=== PATIENT | female | born 1955 | race Caucasian/White ===

== ENCOUNTER → 2018-06-24 | Outpatient (CLI) | payer OTHER ==
[2018-06-24 10:35] LABS: CHOL/HDL RATIO 4.1; Cholesterol 241 mg/dL (50-200); HDL Cholesterol 59 mg/dL (>39); LDL/HDL RATIO 2.5; Low Density Lipoprotein Chol 146 mg/dL (0-110); Triglycerides 182 mg/dL (30-160); Very Low Density Lipoprot Chol 36 mg/dL (6-32)
== END | disposition home or self-care (01) ==
LOC: LAB 09:21 → LAB SHORT 09:21
PROVIDERS: Physician Assistant
DX: Z13.0 Encounter for screening for diseases of the blood and blood-forming organs and certain disorders involving the immune mechanism (principal)
CPT/HCPCS: 80061; 83036

== ENCOUNTER → 2019-03-08 | Outpatient (CLI) | payer OTHER | LOC: LAB 15:45 → LAB SHORT 15:45 | DX: N39.0 Urinary tract infection, site not specified (principal) | CPT/HCPCS: 87086 ==

== ENCOUNTER 2019-06-01 19:21 | Observation (INO) | payer OTHER ==
[~2019-06-01] VITALS: Ht 162.6 cm; Wt 113.4 kg
[2019-06-01 19:55] LABS: BASOPHILS ABSOLUTE AUTO 0.04 K/mm3 (0.00-0.23); BASOPHILS PERCENT AUTO 0 % (0-2); EOSINOPHILS ABSOLUTE AUTO 0.08 K/mm3 (0.00-0.68); EOSINOPHILS PERCENT AUTO 1 % (0-6); Hematocrit 41.6 % (33.0-51.0); Hemoglobin 13.7 g/dL (11.5-16.0); IMMATURE GRAN ABSOLUTE AUTO 0.02 K/mm3 (0.00-0.10); IMMATURE GRAN PERCENT AUTO 0 % (0-1); LYMPHOCYTES ABSOLUTE AUTO 4.59 K/mm3 (0.84-5.20); LYMPHOCYTES PERCENT AUTO 49 % (21-46); MONOCYTES ABSOLUTE AUTO 0.53 K/mm3 (0.16-1.47); MONOCYTES PERCENT AUTO 6 % (4-13); Mean Corpuscular HGB Conc 32.9 g/dL (31.5-36.5); Mean Corpuscular Volume 100 fL (80-100); Mean Platelet Volume 9.9 fL (9.1-12.4); NEUTROPHILS ABSOLUTE AUTO 4.06 K/mm3 (1.96-9.15); NEUTROPHILS PERCENT AUTO 44 % (41-73); Platelet Count 268 K/mm3 (150-400); RDW Coefficient Variation 13.3 % (11.7-14.2); RDW Standard Deviation 49.8 fL (35.1-46.3); Red Blood Cell Count 4.15 M/mm3 (3.80-5.20); White Blood Cell Count 9.32 K/mm3 (4.00-11.30)
[2019-06-01 20:19] LABS: Ethanol (Alcohol), Blood, Med 110 mg/dL; Free Thyroxine 0.94 ng/dL (0.70-1.60); Salicylate <1.7 mg/dL (2.8-20.0)
[2019-06-01 20:20] LABS: Alanine Aminotransfer (ALT/SGP 47 U/L (12-78); Albumin, Blood 3.9 g/dL (3.4-5.0); Albumin/Globulin Ratio 1.2 (0.8-1.8); Alk Phos 81 U/L (50-136); Anion Gap 10 mmol/L (6-16); Aspartate Aminotrans (AST/SGOT 20 U/L (12-37); Bilirubin, Total 0.4 mg/dL (0.1-1.0); Blood Urea Nitrogen 14 mg/dL (8-24); Bun/Creatinine Ratio 18.2 (12.0-20.0); CO2, Blood 22 mmol/L (21-32); Calcium, Blood 8.5 mg/dL (8.5-10.1); Chloride, Blood 110 mmol/L (98-108); Creatinine, Blood 0.77 mg/dL (0.40-1.00); Globulin, Blood 3.2 g/dL (2.2-4.0); Glomerular Filtration Rate >60 (60-); Glucose, Blood 138 mg/dL (70-99); Potassium, Blood 3.4 mmol/L (3.5-5.5); Sodium, Blood 142 mmol/L (136-145); Total Protein, Blood 7.1 g/dL (6.4-8.2)
[2019-06-01 20:26] LABS: Acetaminophen, Random <2.0 ug/mL (10.0-30.0)
[2019-06-01] MEDS ORDERED: ESCI20 PO (21:08)
[2019-06-01] MEDS ORDERED: Buspirone HCl30 MG PO (21:08)
[2019-06-01] MEDS ORDERED: TOPROL XL50 MG PO (21:09)
[2019-06-01] MEDS ORDERED: ATORVASTATIN CA40 MG PO (21:09)
[2019-06-01] MEDS ORDERED: LOSARTAN POTASS25 M2 PO (21:09)
[2019-06-01] MEDS ORDERED: BUSP10 PO (21:09)
[2019-06-02 00:09] LABS: U Amphetamine Screen Not Detected; U Barbituate Screen Not Detected; U Benzodiazapine Screen Not Detected; U Buprenorphine Screen Not Detected; U Cannabinoids Screen DETECTED; U Cocaine Screen Not Detected; U Methadone Screen Not Detected; U Methamphetamine Screen Not Detected; U Opiates Screen Not Detected; U Oxycodone Screen Not Detected; U Phencyclidine Screen Not Detected; U Propoxyphene Screen Not Detected
--- NOTE | 2019-06-02 01:17 | NUR ---
REPORT RECIEVED FROM FRACISCO NICHOLAS RN, AND AWAITING PT T/F TO ROOM 350.
[2019-06-02 05:30] LABS: Anion Gap 8 mmol/L (6-16); Blood Urea Nitrogen 9 mg/dL (8-24); Bun/Creatinine Ratio 13.5 (12.0-20.0); CO2, Blood 23 mmol/L (21-32); Calcium, Blood 8.1 mg/dL (8.5-10.1); Chloride, Blood 112 mmol/L (98-108); Creatinine, Blood 0.67 mg/dL (0.40-1.00); Glomerular Filtration Rate >60 (60-); Glucose, Blood 113 mg/dL (70-99); Magnesium, Blood 2.1 mg/dL (1.6-2.4); Potassium, Blood 4.1 mmol/L (3.5-5.5); Sodium, Blood 143 mmol/L (136-145)
--- NOTE | 2019-06-02 06:03 | NUR ---
T/F AND SUMMARY: PT T/F'D TO ROOM 350 AT 0130 VIA BED. SI PRECAUTIONS IN PLACE, CAMERA MONITORING COMMENCED AND ROOM PREPPED PER PROTOCOL. SHE'S A/OX4, DENIES ANY FURTHER SI AND REPORTS DRINKING CBD OIL WAS NOT DONE W/INTENTION TO OD BUT "WAS A MISTAKE AFTER HAVING A LONG DAY, FILLED W/ANXIETY". SHE ADMITS TO ANXIETY/DEPRESSION AND SI IN HER LIFETIME BUT DENIES ANY W/IN PAST 3 MONTHS. PT SEES MD AT [facility]. TO BE CX'D, INFO SENT TO CRISIS RN IN ER. SHE ALSO REPORTS X2 GLASSES WINE DAILY BUT NO S/S ETOH W/D. PT DENIED NAUSEA AND PAIN BUT REPORTS UNSTEADY GAIT AND WEAKNESS. SBA PROVIDED TO TOILET. TELEMETRY APPLIED, NSR/S.TACH AT 70'S-110 BPM. IVF COMMENCED, 1ST BAG NS BEING RECIEVED NOW. SPO2 WNL ON RA AND CLEAR LS. PT REFUSED FLU VAC D/T HAVING THIS SEASON PRIOR TO ADMIT. NO ACUTE CHANGES, VSS/AFEBRILE. UPON D/C PT'S SON WILL PROVIDE TRANSPORT BUT HE'LL REQUIRE 1HR NOTICE SINCE HE LIVES IN [place], WILL ENSURE DAY STAFF ARE AWARE. WCTM AND REPORT TO DAY RN.
--- NOTE | 2019-06-02 10:33 | NUR ---
Safety Plan complete. Lily Julien was actively engaged and displayed insight during our discussion of her stressors and her ongoing anxiety. 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 She was concerned that her admit edita affect her job. Informed her that re ords are private and a release is required to share any information. Dr. Leahy at [facility] is PCP. He referred her to Dr. Rossi" at that clinic for therapy. category development manager contacted to get appoinment scheduled. Pt was also informed that needs to happen. Dr. Leahy stopped Klonipin several months ago, now on Buspar. Patient drinks almost daily in the evening-- 2009 after 31 yrs - informed her. She reports a "breakdown during that time, and her younger son cared for her. She described a severe depression. She reported drinking more than usual before drinking te CBD syrup. Her sister called EMS after finding Lily on her bed in an agitated state. She has 2 sons--Iraj and Radha, [place]. She displayed excellent insight into her use of alcohol instead of the Klonipin (her intake increased after Klonipin stopped). She identified that this time of year is difficult anyway, as her mom "40 years ago and I was the one my family left me to pull the plug whenI was 22). Dr[address] Burns visited during the interview. Pt is future oriented and upset with herself for the OD. Pt reported excitement in engaging in her Safety Plan. Micaela West M.Ed., [facility]
--- NOTE | 2019-06-02 16:54 | NUR ---
SHIFT SUMMARY PT AWAKE, A&O, PLEASANT AND CO-OP DURING SHIFT REPORT. PT IN SI PRECAUTIONS, BUT DENIED BEING SUICIDAL TODAY. PT REPORTED THAT SHE JUST FELT STUPID FOR WHAT SHE DID. NO FURTHER C/O N/V SINCE PRIOR TO THIS SHIFT. POISON CONTROL CALLED A COUPLE OF TIMES FOR INFORMATION. UPDATE GIVEN. FABIÁN'S AND DR FOSTER ALL VISITED WITH PT AND COMPLETED ASSESSMENTS. PSYCH EVAL COMPLETE AND D/C ORDERS PLACED. IV AND TELE MX D/C'D. F/U APPOINTMENT MADE FOR TOMORROW AT 1PM AT [place]. D/C INSTRUCTIONS GIVEN; PT VERBALIZED UNDERSTANDING. PT'S SON IN THIS AM, WAITING TO TAKE PT HOME WHEN D/C'D. PT REQUESTED TO WALK OUT ON HER OWN WITH HER SON.
== END 2019-06-02 15:59 | disposition home or self-care (01) ==
LOC: ER 19:21 → MEDS 19:22
PROVIDERS: Physician Assistant; ADMIT Hospitalist
DX: T40.7X2A Poisoning by cannabis (derivatives), intentional self-harm, initial encounter (principal); R41.82 Altered mental status, unspecified; F32.9 Major depressive disorder, single episode, unspecified; F41.9 Anxiety disorder, unspecified; I10 Essential (primary) hypertension; M19.90 Unspecified osteoarthritis, unspecified site; Z79.899 Other long term (current) drug therapy
CPT/HCPCS: 36415; 71045; 80048; 80053; 81025; 83735; 84439; 84443; 85025; 93005; 93010; 96361; 96372; 96374; 96375; 99285-25; G0378; G0480; J1200; J1630; J1650; J7030

== ENCOUNTER → 2019-06-06 | Outpatient (CLI) | payer OTHER ==
[~2019-06-06] MED LIST: ATORVASTATIN CA40 MG PO; BUSP10 PO; Buspirone HCl30 MG PO; ESCI20 PO; LOSARTAN POTASS25 M2 PO; TOPROL XL50 MG PO
[2019-06-11 10:07] LABS: METANEPHRINE, UR 18 ug/L (Undefined)
== END | disposition home or self-care (01) ==
LOC: LAB 06:45 → LAB FUT 06:45
PROVIDERS: Family Medicine
DX: R61 Generalized hyperhidrosis (principal)
CPT/HCPCS: 81050; 83835

== ENCOUNTER → 2020-10-06 | Outpatient (CLI) | payer OTHER ==
[2020-10-10 16:07] LABS: HPV 16 Negative (Negative); HPV 18 Negative (Negative); HPV OTHER HR TYPES Negative (Negative)
== END | disposition home or self-care (01) ==
LOC: LAB 18:59 → LAB SHORT 18:59
PROVIDERS: Family Medicine
DX: Z01.419 Encounter for gynecological examination (general) (routine) without abnormal findings (principal); E78.00 Pure hypercholesterolemia, unspecified
CPT/HCPCS: 87624; G0123